=== PATIENT | female | born 1995 | race Caucasian/White ===

== ENCOUNTER 2018-03-16 20:15 | Emergency (ER) | payer MEDICAID ==
[~2018-03-16] VITALS: Ht 157.5 cm; Wt 104.3 kg
--- OUTSIDE RECORDS SUMMARY | 2018-03-16 20:20 | XMS REPORT ---
Author Author JANNY ODEN [facility] eClinicalWorks Address Unknown Phone Unavailable Care Team Providers Care Back Order Clerk Name Role Phone JANNY ODEN CP Unavailable Allergies, Adverse Reactions, Alerts Substance Reaction Event Type N.K.D.A. Info Not Available Non Drug Allergy Problems Problem Type Condition Code Onset Dates Condition Status Assessment Dental examination Z01.20 Active Medications Medication Code System Code Instructions Start Date End Date Status Dosage Ranitidine ND 0 not defined Zovia E (28) [facility] [address]-68 not defined Vyvanse [facility] [address]-19 not defined Acetaminophen [facility] [address]-75 not defined Pamprin Multi-Symptom [facility] [address] not defined Polyethylene Glycol 3350 [facility] [address]-51 not defined Guanfacine HCl [facility] [address]-26 not defined Oxcarbazepine [facility] [address]-66 not defined Melatonin [facility] [address] not defined Loratadine [facility] [address]-82 not defined Procedures Procedure Coding System Code Date AMALGAM-TWO SURFACES PRIMARY/PERM CPT-4 D2150 Aug 10, 2015 Vital Signs Date/Time: Oct 06, 2015 Blood Pressure Diastolic 74 mmHg Blood Pressure Systolic 129 mmHg Results No Known Results Summary Purpose eClinicalWorks Submission
--- OUTSIDE RECORDS SUMMARY | 2018-03-16 20:20 | XMS REPORT ---
Author Author ALFONSO CHAUDHARI [facility] Address Unknown Care Team Providers Care Physical Therapy Nurse Name Role Phone WATSON ALFONSO Unavailable PROBLEMS Type Condition ICD9-CM Code [id number] Code Onset Dates Condition Status SNOMED Code Problem Encounter for dental examination Z01.20 Active [id number] ALLERGIES No Known Allergies SOCIAL HISTORY Never Assessed PLAN OF CARE Activity Details Follow Up prn Reason:PROPHY VITAL SIGNS Blood pressure systolic 130 mmHg 2016-11-16 Blood pressure diastolic 97 mmHg 2016-11-16 MEDICATIONS Medication Instructions Dosage Frequency Start Date End Date Duration Status Debrox 6.5 % Active IUD's Active Loratadine Active Melatonin Active Polyethylene Glycol 3350 Active Zovia E () Active Guanfacine HCl Active Acetaminophen Active Ranitidine Active Pamprin Multi-Symptom Active Oxcarbazepine Active RESULTS No Results PROCEDURES Procedure Date Ordered Result Body Site LTD ORAL EVALUATION - PROBLEM FOCUS Nov 16, 2016 INTRAORL-PERIAPICAL 1 FILM 91849 Nov 16, 2016 PRFABR STAINLESS STEEL CROWN-PERM Nov 16, 2016 BITEWING - SINGLE FILM Nov 16, 2016 IMMUNIZATIONS No Known Immunizations MEDICAL (GENERAL) HISTORY Type Description Date Medical History moderate mr
--- OUTSIDE RECORDS SUMMARY | 2018-03-16 20:20 | XMS REPORT ---
Author MACK Rivera Organization eClinicalWorks Address Unknown Phone Unavailable Care Team Providers Care Vice President Payment Name Role Phone MACK CARROLL CP Unavailable Allergies, Adverse Reactions, Alerts Substance Reaction Event Type N.K.D.A. Info Not Available Non Drug Allergy Problems Problem Type Condition Code Onset Dates Condition Status Assessment Encounter for dental examination and cleaning without abnormal findings Z01.20 Active Medications No Known Medications Procedures Procedure Coding System Code Date Periodontal maint procedures CPT-4 D4910 Sep 29, 2015 PERIODIC ORAL EXAMINATION CPT-4 D0120 Sep 29, 2015 Vital Signs Date/Time: Sep 29, 2015 Blood Pressure Diastolic 96 wrist cuff mmHg Blood Pressure Systolic 126 mmHg Results No Known Results Summary Purpose eClinicalWorks Submission
--- OUTSIDE RECORDS SUMMARY | 2018-03-16 20:20 | XMS REPORT | Continuity of Care Document ---
Author Author [facility] Organization [facility] Address Unknown Phone Unavailable Allergies Active Description Code Type Severity Reaction Onset Reported/Identified Relationship to Patient Clinical Status Yes No Known Drug Allergies [id number] Drug Allergy Unknown N/A 08/03/2014 Medications There is no data. Problems Date Dx Coded Attending Type Code Diagnosis Diagnosed By 08/03/2014 JAE WATTERS DO Ot 379.43 08/03/2014 JAE WATTERS DO Ot 784.0 Procedures There is no data. Results There is no data. Encounters ACCT No. Visit Date/Time Discharge Status Pt. Type Provider Facility Loc./Unit Complaint [id number] 08/03/2014 18:16:00 08/03/2014 20:43:00 DIS Emergency JAE WATTERS DO [facility] [place] [id number] 01/24/2018 11:00:00 01/24/2018 23:59:59 CLS Outpatient ISABEL CLARK [facility] [place] [facility]
--- OUTSIDE RECORDS SUMMARY | 2018-03-16 20:20 | XMS REPORT ---
Author RICO Daly [facility] eClinicalWorks Address Unknown Phone Unavailable Care Team Providers Care Patient Support Representative Name Role Phone RICO CAMPBELL CP Unavailable Allergies No Known Allergies Problems Problem Type Condition Code Onset Dates Condition Status Assessment Encounter for PPD test Z11.1 Active Medications No Known Medications Procedures Procedure Coding System Code Date TB INTRADERMAL TEST CPT-4 93062 Oct 20, 2015 Results No Known Results Summary Purpose eClinicalWorks Submission
--- OUTSIDE RECORDS SUMMARY | 2018-03-16 20:20 | XMS REPORT ---
Author JANNY Eaton [facility] eClinicalWorks Address Unknown Phone Unavailable Care Team Providers Care Box Sealing Machine Operator Name Role Phone JANNY ODEN CP Unavailable Allergies, Adverse Reactions, Alerts Substance Reaction Event Type N.K.D.A. Info Not Available Non Drug Allergy Problems Problem Type Condition Code Onset Dates Condition Status Assessment Dental examination Z01.20 Active Medications Medication Code System Code Instructions Start Date End Date Status Dosage Guanfacine HCl [facility] [address]-09 not defined Vyvanse [facility] [address]-37 not defined Pamprin Multi-Symptom [facility] [address] not defined Melatonin [facility] [address] not defined Oxcarbazepine [facility] [address]-42 not defined Loratadine [facility] [address]-96 not defined Acetaminophen [facility] [address]-49 not defined Polyethylene Glycol 3350 [facility] [address]-43 not defined Zovia 1/35E (28) [facility] [address]-89 not defined Ranitidine ND 0 not defined Procedures Procedure Coding System Code Date AMALGAM-3 SURFACES PRIMARY/PERM CPT-4 D2160 Aug 10, 2015 Vital Signs Date/Time: Aug 10, 2015 Blood Pressure Diastolic 89 mmHg Blood Pressure Systolic 143 mmHg Results No Known Results Summary Purpose eClinicalWorks Submission
--- OUTSIDE RECORDS SUMMARY | 2018-03-16 20:20 | XMS REPORT ---
Author Author ALFONSO CHAUDHARI [facility] Address Unknown Care Team Providers Care Contracts Administrator Name Role Phone ALFONSO CHAUDHARI Unavailable PROBLEMS Type Condition ICD9-CM Code [id number] Code Onset Dates Condition Status SNOMED Code Problem Encounter for dental examination Z01.20 Active [id number] ALLERGIES Substance Reaction Event Type Date Status N.K.D.A. Unknown Non Drug Allergy Oct, Unknown SOCIAL HISTORY No smoking Hx information available PLAN OF CARE Activity Details Follow Up prn Reason:HYGIENE VITAL SIGNS MEDICATIONS Medication Instructions Dosage Frequency Start Date End Date Duration Status Zovia E (28) Active IUD's Active Debrox 6.5 % Active Melatonin Active Polyethylene Glycol 3350 Active Loratadine Active Guanfacine HCl Active Acetaminophen Active Ranitidine Active Pamprin Multi-Symptom Active Oxcarbazepine Active RESULTS No Results PROCEDURES Procedure Date Ordered Related Diagnosis Body Site Dental no charge Oct 13, 2016 IMMUNIZATIONS No Known Immunizations
--- OUTSIDE RECORDS SUMMARY | 2018-03-16 20:20 | XMS REPORT ---
Author Author ALFONSO CHAUDHARI eClinicalWorks Address Unknown Phone Unavailable Care Team Providers Care Healthcare Insurance Sales Agent Name Role Phone ALFONSO CHAUDHARI CP Unavailable Allergies, Adverse Reactions, Alerts Substance Reaction Event Type N.K.D.A. Info Not Available Non Drug Allergy Problems Problem Type Condition Code Onset Dates Condition Status Assessment Dental examination Z01.20 Active Problem Encounter for dental examination Z01.20 Active Medications Medication Code System Code Instructions Start Date End Date Status Dosage IUD's NDC 0 not defined Debrox [facility] [address]-85 6.5 % Otic not defined Zovia E (28) [facility] [address]-54 [place] [address]-59 not defined Polyethylene Glycol 3350 NDC 0 [place] [address] not defined Ranitidine NDC 0 not defined Loratadine [facility] [address]-86 [place] [address]-74 [place] [address] [place] [address]-37 not defined Procedures Procedure Coding System Code Date INTRAORL-PERIAPICAL 1 FILM 05532 CPT-4 D0220 Jun 16, 2016 LTD ORAL EVALUATION - PROBLEM FOCUS CPT-4 D0140 Jun 16, 2016 Vital Signs Date/Time: Jun 16, 2016 Blood Pressure Diastolic 82 mmHg Blood Pressure Systolic 113 mmHg Results No Known Results Summary Purpose eClinicalWorks Submission
--- OUTSIDE RECORDS SUMMARY | 2018-03-16 20:20 | XMS REPORT ---
Author Author JANNY ODEN [facility] eClinicalWorks Address Unknown Phone Unavailable Care Team Providers Care Him Tech Name Role Phone JANNY ODEN CP Unavailable Allergies, Adverse Reactions, Alerts Substance Reaction Event Type N.K.D.A. Info Not Available Non Drug Allergy Problems Problem Type Condition Code Onset Dates Condition Status Assessment Encounter for dental examination Z01.20 Active Problem Encounter for dental examination Z01.20 Active Medications Medication Code System Code Instructions Start Date End Date Status Dosage Debrox [facility] [address]-20 6.5 % Otic not defined IUD's NDC 0 not defined Polyethylene Glycol 3350 [facility] [address]-92 not defined Procedures Procedure Coding System Code Date Billing Notes on claim CPT-4 EC109 April 05, 2016 RESIN COMPOS - 3 SURFACES ANTERIOR CPT-4 D2332 April 05, 2016 Vital Signs Date/Time: April 05, 2016 Blood Pressure Diastolic 83 mmHg Blood Pressure Systolic 122 mmHg Results No Known Results Summary Purpose eClinicalWorks Submission
--- OUTSIDE RECORDS SUMMARY | 2018-03-16 20:20 | XMS REPORT ---
Author Author NHAN FARRIS [facility] Address [address] [place] [address] Care Team Providers Care Right Of Way Clearer Name Role Phone KALEIGH NHAN Unavailable PROBLEMS Type Condition ICD9-CM Code [id number] Code Onset Dates Condition Status SNOMED Code Problem Encounter for dental examination Z01.20 Active [id number] ALLERGIES No Known Allergies SOCIAL HISTORY Never Assessed PLAN OF CARE Activity Details Follow Up first Available Reason:restorative VITAL SIGNS Heart Rate 83 bpm 2016-10-13 Blood pressure systolic 119 mmHg 2016-10-13 Blood pressure diastolic 77 mmHg 2016-10-13 MEDICATIONS Medication Instructions Dosage Frequency Start Date End Date Duration Status Polyethylene Glycol 3350 Active Acetaminophen Active Debrox 6.5 % Active IUD's Active Oxcarbazepine Active Melatonin Active Guanfacine HCl Active Ranitidine Active Pamprin Multi-Symptom Active Loratadine Active Zovia () Active RESULTS No Results PROCEDURES Procedure Date Ordered Result Body Site PERIODIC ORAL EXAMINATION Oct 13, 2016 PROPHYLAXIS - ADULT Oct 13, 2016 TOPICAL FLUORIDE VARNISH Oct 13, 2016 IMMUNIZATIONS No Known Immunizations MEDICAL (GENERAL) HISTORY Type Description Date Medical History moderate mr
[2018-03-16] MEDS ORDERED: RX-HYDROCODONE/APAP 5/325 MG #4 TAB PK PO PRN (20:30)
[2018-03-16] MEDS ORDERED: IBUPROFEN 800 MG (MOTRIN) TAB PO ONE (20:30)
[2018-03-16] MEDS ORDERED: RX-MUPIROCIN (BACTROBAN) 2% OINT 22 GM TUBE ONE (20:30)
[2018-03-16] MEDS ORDERED: TETANUS,DIPTH,PERTUSS P/F (BOOSTRIX) 0.5 ML VIAL IM ONE (20:30)
[2018-03-16] MEDS ORDERED: HYDR-757 PO (20:33)
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
[2018-03-16 20:41] VITALS: BP 168/94
[2018-03-16] MEDS ORDERED: BACITRACIN OINTMENT 28 GM TUBE TOP SCH (21:00)
== END 2018-03-16 20:40 | disposition home or self-care (01) ==
LOC: EDUNIT# 20:15 → ER 20:17
DX: T21.02XA Burn of unspecified degree of abdominal wall, initial encounter (principal); T31.0 Burns involving less than 10% of body surface; F90.9 Attention-deficit hyperactivity disorder, unspecified type; Z23 Encounter for immunization; X12.XXXA Contact with other hot fluids, initial encounter
CPT/HCPCS: 90471; 90715; 99284

== ENCOUNTER 2018-06-10 22:04 | Emergency (ER) | payer MEDICAID ==
[~2018-06-10] VITALS: Ht 149.9 cm; Wt 99.8 kg
[~2018-06-10 22:04] MED LIST: HYDR-4226 PO
[2018-06-10] MEDS ORDERED: SULF1TAB35 PO (22:27)
--- NOTE | 2018-06-10 22:27 | ED Integumentary General ---
General Chief Complaint: Skin/Wound Problems Stated Complaint: WOUND ON STOMACH Source: patient, caregiver Exam Limitations: no limitations, physical impairment History of Present Illness Date Seen by Provider: Jun 10, 2018 Time Seen by Provider: 22:25 Initial Comments Patient is a 23-year-old female who presents to the emergency room with her corporate investigator for complaints of an abscess to her right lower quadrant area on her abdomen. 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 The wound is open and draining at this time. Timing/Duration: yesterday Associated Symptoms: change in skin texture, other Allergies and Home Medications Allergies Coded Allergies: No Known Drug Allergies (Unverified , 08/03/14) Home Medications Hydrocodone/Acetaminophen 1 Each Tablet, 1 EACH PO Q6H PRN for PAIN-MODERATE Prescribed by: KIRT YOUNG on 03/16/182032 Sulfamethoxazole/Trimethoprim 1 Each Tablet, 1 EACH PO BID Prescribed by: MELLISSA LOTT on 06/10/182226 Patient Home Medication List Home Medication List Reviewed: Yes Review of Systems Review of Systems Constitutional: see HPI; No chills, No fever Skin: see HPI, lesions (abdominal wall abscess right lower quadrant area) All Other Systems Reviewed Negative Unless Noted: Yes Past Ltyondf-Fmdcgr-Wcktao Hx Past Med/Social Hx: Reviewed Nursing Past Med/Soc Hx Patient Social History Alcohol Use: Denies Use Recreational Drug Use: No Smoking Status: Never a Smoker 2nd Hand Smoke Exposure: No Recent Foreign Travel: No Contact w/Someone Who Travel: No Recent Hopitalizations: No Immunizations Up To Date Tetanus Booster (TDap): Less than 5yrs PED Vaccines UTD: Yes Seasonal Allergies Seasonal Allergies: No Past Medical History Surgeries: Yes (ADDITIONAL DIGIT REMOVAL) Respiratory: No Cardiac: No Neurological: No Reproductive Disorders: No Sexually Transmitted Disease: No Genitourinary: No Gastrointestinal: No Musculoskeletal: No Endocrine: No HEENT: No Cancer: No 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/ADHD Integumentary: No Recent Skin Changes Blood Disorders: No Adverse Reaction/Blood Tranf: No Family Medical History Reviewed Nursing Family Hx Physical Exam Vital Signs Capillary Refill : General Appearance: WD/WN, no apparent distress Cardiovascular: normal peripheral pulses, regular rate, rhythm, no edema, no gallop, no JVD, no murmur Respiratory: chest non-tender, lungs clear, normal breath sounds, no respiratory distress, no accessory muscle use Gastrointestinal: normal bowel sounds, non tender, soft, no organomegaly, no pulsatile mass Skin: normal color, warm/dry Skin Problem Location: torso (right lower quadrant abdominal wall.) Skin Problem Character: abscess (there is an area of erythema that is 4 cm diameter with an area of 1 cm diameter central punctum that is open and draining a purulent drainage. Pressure was applied and a moderate amount of purulent drainage was expressed. Culture was sent to lab.) Progress/Results/Core Measures Results/Orders My Orders Orders - MELLISSA LOTT Sulfamethoxazole/Trimet Ds Tab (Bactrim (06/10/18 22:30) Progress Progress Note : Time: 22:25 Progress Note Patient seen and evaluated the patient. A culture was sent to lab of the drainage. The patient and caregiver agreed for planes of discharge, antibiotic use, Tylenol and ibuprofen for pain. She was placed on Bactrim for suspected MRSA. Departure Impression Primary Impression: Abscess Additional Impression: Cellulitis Disposition: 01 HOME, SELF-CARE Condition: Stable/Unchanged Departure-Patient Inst. Decision time for Depature: 22:25 Referrals: VANE ARMSTRONG MD (PCP/Family) Primary Care Physician Patient Instructions: Skin Abscess Add. Discharge Instructions: Take medications as directed. You may use ibuprofen and Tylenol as directed by the bottle for pain. Follow up with Dr. Carmichael within 1 week for recheck. Return back to the emergency room for any worsening symptoms or concerns as needed. All discharge instructions reviewed with patient and/or family. Voiced understanding. Scripts Sulfamethoxazole/Trimethoprim (Bactrim Ds Tablet) 1 Each Tablet 1 EACH PO BID for 10 Days, #20 TAB Prov: MELLISSA LOTT 06/10/18 MELLISSA LOTT Jun 10, 2018 22:27
[2018-06-10] MEDS ORDERED: TRIM/SULFAMETH 160/800 (SEPTRA DS) TAB PO ONE (22:30)
[2018-06-10 22:35] VITALS: BP 136/89
== END 2018-06-10 22:35 | disposition home or self-care (01) ==
LOC: EDUNIT# 22:04 → ER 22:05
DX: L02.211 Cutaneous abscess of abdominal wall (principal); L03.311 Cellulitis of abdominal wall; F90.9 Attention-deficit hyperactivity disorder, unspecified type
CPT/HCPCS: 99283

== ENCOUNTER → 2020-10-11 | Outpatient (CLI) | payer MEDICAID ==
[~2020-10-11] MED LIST changes: +SULF1TAB35 PO
--- NOTE | 2020-10-11 16:46 | Diagnostic Imaging Report ---
PROCEDURE: US Non-ob pelvis comp/trans. TECHNIQUE: Multiple Real-time grayscale images were obtained of the pelvis in various projections endovaginally. Transabdominal imaging was also performed. INDICATION: Pelvic pain. COMPARISON: There are no prior studies available for comparison. FINDINGS: The uterus is nongravid and not enlarged measuring 5.2 x 2.5 x 4.3 cm. There is an IUD within the endometrium and the IUD seems to be in good position. The endometrial lining is not thickened measuring 5 mm. There is no focal mass involving the uterus to suggest a fibroid. Both ovaries are identified. The ovaries are generally unremarkable. There is no solid pelvic mass or free fluid collection evident. IMPRESSION: 1. There is no evidence for an acute pelvic abnormality. 2. There is an IUD within the uterus and the IUD seems to be in good position. Dictated by: Dictated on workstation # [id number]
== END ==
LOC: RAD 14:41
PROVIDERS: ATTEND Family Medicine
DX: Z30.431 Encounter for routine checking of intrauterine contraceptive device (principal); R10.2 Pelvic and perineal pain
CPT/HCPCS: 76830; 76856

== ENCOUNTER 2021-03-11 05:52 | Emergency (ER) | payer MEDICAID | END 2021-03-11 06:33 | disposition left against medical advice (07) | LOC: EDUNIT# 05:52 → ER 05:57 | DX: K59.00 Constipation, unspecified (principal) ==

== ENCOUNTER 2023-05-05 15:53 | Inpatient (IN) | payer MEDICAID ==
[~2023-05-05] VITALS: Ht 149 cm; Wt 127.0 kg
[~2023-05-05 15:53] MED LIST changes: -SULF1TAB35 PO; +SULF1TAB38 PO
[2023-05-05] MEDS ORDERED: fentaNYL INJECTION 100 MCG/2 ML VIAL IVP ONE (16:30)
[2023-05-05] MEDS ORDERED: LACTATED RINGERS 1,000 ML IV ONE ×2 (16:30→17:00)
[2023-05-05] MEDS ORDERED: ACETAMINOPHEN 500 MG TABLET PO ONE (16:30)
[2023-05-05] MEDS ORDERED: ONDANSETRON 4 MG/2 ML (SDV) Z0FRAN IVP ONE (16:30)
[2023-05-05] MEDS ORDERED: PIPERACILLIN SODIUM/TAZOBACTAM 4.5 GM in NS (IVPB) 100 ML 100 ML IV ONE (16:30)
[2023-05-05 16:33] LABS: BASOPHILS % (AUTO) 0 % (0-10); EOSINOPHILS % (AUTO) 0 % (0-10); HEMATOCRIT 43 % (35-52); HEMOGLOBIN 14.1 g/dL (11.5-16.0); LYMPHOCYTES # (AUTO) 1.1 10^3/uL (1.0-4.0); LYMPHOCYTES % (AUTO) 12 % (12-44); MEAN CORPUSCULAR HEMOGLOBIN 28 pg (25-34); MEAN CORPUSCULAR HGB CONC 33 g/dL (32-36); MEAN CORPUSCULAR VOLUME 85 fL (80-99); MEAN PLATELET VOLUME 10.4 fL (9.0-12.2); MONOCYTES # (AUTO) 0.5 10^3/uL (0.0-1.0); MONOCYTES % (AUTO) 5 % (0-12); NEUTROPHILS # (AUTO) 7.8 10^3/uL (1.8-7.8); NEUTROPHILS % (AUTO) 83 % (42-75); PLATELET COUNT 232 10^3/uL (130-400); WHITE BLOOD COUNT 9.5 10^3/uL (4.3-11.0)
--- NOTE | 2023-05-05 16:39 | Diagnostic Imaging Report ---
INDICATION: Sepsis. TIME OF EXAM: 4:22 PM. COMPARISON: No prior studies are available for comparison. FINDINGS: The heart size is normal. The pulmonary vascularity is unremarkable. The lungs are clear. No infiltrate, effusion or pneumothorax is detected. IMPRESSION: No acute cardiopulmonary process is detected. Dictated by: Dictated on workstation # [id number]
[2023-05-05 16:41] LABS: INR 1.2 (0.8-1.4); PROTHROMBIN TIME PATIENT 15.5 SEC (12.2-14.7)
[2023-05-05 16:44] LABS: FIBRIN DEGRADATION PRODUCTS 1.92 UG/ML (0.00-0.49)
[2023-05-05 16:45] LABS: CALCIUM 10.5 MG/DL (8.5-10.1)
[2023-05-05 16:46] LABS: TOTAL PROTEIN 8.1 GM/DL (6.4-8.2)
[2023-05-05 16:48] LABS: BILIRUBIN,TOTAL 0.4 MG/DL (0.1-1.0)
[2023-05-05] MEDS: VANCOMYCIN INJECTION 1,000 MG in NS (IVPB) 250 ML 250 ML IV SCH ×2 (16:48→17:49)
[2023-05-05 16:50] LABS: CREATININE SERUM 1.09 MG/DL (0.60-1.30)
--- NOTE | 2023-05-05 16:50 | ED General ---
General Chief Complaint: Lower Extremity Stated Complaint: LEFT LEG SWELLING Nursing Triage Note: PT TO RM 3 PER W/C, PT CO OF L LOWER EXT SWELLING, REDNESS FOR 2 DAYS. PT STATES HAS HAD FEVERS FOR A COUPLE DAYS. PT CO OF PAIN RATES PAIN 10. PT WAS SEEN AT [facility] AND STATES WAS GIVEN A PAIN SHOT, TORDOL. PT STATES ALSO HAS SOME VOMITING. PT WAS GIVEN 1GM IM ROCEPHIN AT [facility]. NO WOUNDS OR BREAKDOWNS NOTED ON L LOWER EXT. PT DOES HAVE CRACKS NOTED ON HEELS Source of Information: Patient, Family Exam Limitations: No Limitations History of Present Illness Date Seen by Provider: May 05, 2023 Time Seen by Provider: 16:06 Initial Comments This 28-year-old young lady presents to the emergency room as referred by [facility] for patient with cellulitis of the left lower leg and foot. Patient notes she began to feel ill on Sunday, May 01 with redness in her leg and foot. By she was ill with headache, fever and vomiting. She reports sleeping ou tside on the porch that night because she did not want to disturb anyone in the house. She presented to the [facility] clinic today, and she received a Rocephin injection she was referred to the ER. She is quite tachycardic with HR in the 140s and 150s and febrile with temperature of 38.3 C. Patient appears to have cognitive limitations during the interview. Allergies and Home Medications Allergies Coded Allergies: No Known Drug Allergies (Unverified , 08/03/14) Patient Home Medication List Home Medication List Reviewed: Yes Hydrocodone/Acetaminophen (Hydrocodone/Acetaminophen 5 MG/325 MG TAB) 1 Each Tablet, 1 EACH PO Q6H PRN for PAIN-MODERATE Prescribed by: KIRT YOUNG on 03/16/182032 Sulfamethoxazole/Trimethoprim (Bactrim Ds Tablet) 1 Each Tablet, 1 EACH PO BID Prescribed by: MLELISSA LOTT on 06/10/182226 Review of Systems Review of Systems Constitutional: see HPI EENTM: no symptoms reported Respiratory: no symptoms reported Cardiovascular: see HPI Gastrointestinal: see HPI Genitourinary: no symptoms reported : No Musculoskeletal: no symptoms reported Skin: see HPI Psychiatric/Neurological: See HPI Hematologic/Lymphatic: No Symptoms Reported Immunological/Allergic: no symptoms reported Past Fqljekd-Fxzzsk-Qldcnp Hx Patient Social History Tobacco Use?: No Substance use?: No Alcohol Use?: No Pt feels they are or have been: No Immunizations Up To Date Tetanus Booster (TDap): Less than 5yrs PED Vaccines UTD: Yes Seasonal Allergies Seasonal Allergies: No Past Medical History Surgery/Hospitalization HX: BIPOLAR, MOOD DISORDER, ADHD Surgeries: Yes (ADDITIONAL DIGIT REMOVAL) Respiratory: No Cardiac: No Neurological: No : No Reproductive Disorders: No Sexually Transmitted Disease: No Genitourinary: No Gastrointestinal: No Musculoskeletal: No Endocrine: No HEENT: No Cancer: No Psychosocial: Yes (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 oz. 99.461653dz; 55.00 BMI Method:Stated General Appearance: WD/WN, Mild Distress, Obese HEENT: PERRL/EOMI, Normal ENT Inspection Neck: Normal Inspection Respiratory: Lungs Clear, Normal Breath Sounds, No Accessory Muscle Use, No Respiratory Distress Cardiovascular: No Edema, No Murmur, Tachycardia Gastrointestinal: Normal Bowel Sounds, Non Tender, Soft Extremity: Other (Marked blanching erythema, tenderness, warmth, and edema of the mid lower leg down through the entire foot.) Neurologic/Psychiatric: Alert, Oriented x3, No Motor/Sensory Deficits, Normal Mood/Affect Skin: warm/dry, other (As above) Focused Exam Lactate Level 05/05/23 16:15: Lactic Acid Level 2.20*H Lactic Acid Level Laboratory Tests Test 05/05/23 16:15 Lactic Acid Level 2.20 MMOL/L (0.50-2.00) *H Progress/Results/Core Measures Suspected Sepsis SIRS Temperature: Pulse: 142 Respiratory Rate: 20 Laboratory Tests 05/05/23 16:15: White Blood Count 9.5 Blood Pressure 134 /95 Mean: 108 05/05/23 16:15: Lactic Acid Level 2.20*H Laboratory Tests 05/05/23 16:15: Creatinine 1.09, INR Comment 1.2, Platelet Count 232, Total Bilirubin 0.4 Results/Orders Lab Results Laboratory Tests Test 05/05/23 16:15 05/05/23 16:55 Range/Units White Blood Count 9.5 4.3-11.0 10^3/uL Red Blood Count 5.04 3.80-5.11 10^6/uL Hemoglobin 14.1 11.5-16.0 g/dL Hematocrit 43 35-52 % Mean Corpuscular Volume 85 80-99 fL Mean Corpuscular Hemoglobin 28 25-34 pg Mean Corpuscular Hemoglobin Concent 33 32-36 g/dL Red Cell Distribution Width 14.1 10.0-14.5 % Platelet Count 232 130-400 10^3/uL Mean Platelet Volume 10.4 9.0-12.2 fL Immature Granulocyte % (Auto) 0 % Neutrophils (%) (Auto) 83 H 42-75 % Lymphocytes (%) (Auto) 12 12-44 % Monocytes (%) (Auto) 5 0-12 % Eosinophils (%) (Auto) 0 0-10 % Basophils (%) (Auto) 0 0-10 % Neutrophils # (Auto) 7.8 1.8-7.8 10^3/uL Lymphocytes # (Auto) 1.1 1.0-4.0 10^3/uL Monocytes # (Auto) 0.5 0.0-1.0 10^3/uL Eosinophils # (Auto) 0.0 0.0-0.3 10^3/uL Basophils # (Auto) 0.0 0.0-0.1 10^3/uL Immature Granulocyte # (Auto) 0.0 0.0-0.1 10^3/uL Prothrombin Time 15.5 H 12.2-14.7 SEC INR Comment 1.2 0.8-1.4 Activated Partial Thromboplast Time 35 24-35 SEC D-Dimer 1.92 H 0.00-0.49 UG/ML Sodium Level 136 135-145 MMOL/L Potassium Level 4.0 3.6-5.0 MMOL/L Chloride Level 103 98-107 MMOL/L Carbon Dioxide Level 18 L 21-32 MMOL/L Anion Gap 15 H 5-14 MMOL/L Blood Urea Nitrogen 16 7-18 MG/DL Creatinine 1.09 0.60-1.30 MG/DL Estimat Glomerular Filtration Rate 71 BUN/Creatinine Ratio 15 Glucose Level 91 70-105 MG/DL Lactic Acid Level 2.20 *H 0.50-2.00 MMOL/L Calcium Level 10.5 H 8.5-10.1 MG/DL Corrected Calcium 10.5 H 8.5-10.1 MG/DL Total Bilirubin 0.4 0.1-1.0 MG/DL Aspartate Amino Transf (AST/SGOT) 16 5-34 U/L Alanine Aminotransferase (ALT/SGPT) 20 0-55 U/L Alkaline Phosphatase 83 40-136 U/L Total Protein 8.1 6.4-8.2 GM/DL Albumin 4.0 3.2-4.5 GM/DL Serum Test, Qualitative NEGATIVE NEGATIVE My Orders Orders - ALISSON GUILLERMO MD Cbc With Automated Diff (05/05/23 16:22) Comprehensive Metabolic Panel (05/05/23 16:22) Blood Culture (05/05/23 16:22) Sputum Culture (05/05/23 16:22) Urinalysis (05/05/23 16:22) Urine Culture (05/05/23 16:22) Protime With Inr (05/05/23 16:22) Partial Thromboplastin Time (05/05/23 16:22) Chest 1 View, Ap/Pa Only (05/05/23 16:22) Ed Iv/Invasive Line Start (05/05/23 16:22) Vital Signs Adult Sepsis Patie Q15M (05/05/23 16:22) O2 (05/05/23 16:22) Remove Rings In Anticipation O (05/05/23 16:22) Lactic Acid Analyzer (05/05/23 16:22) Fibrin Degradation Products (05/05/23 16:22) Piperacillin Sodium/Tazobactam (Zosyn Vi (05/05/23 16:30) Vancomycin Injection (Vancomycin Injecti (05/05/23 16:30) Acetaminophen Tablet (Acetaminophen Ta (05/05/23 16:30) Ondansetron Injection (Zofran Injectio (05/05/23 16:30) Fentanyl Inj (Sublimaze Injection) (05/05/23 16:30) Lactated Ringers (Lr 1000 Ml Iv Solution (05/05/23 16:30) Hcg,Qualitative Serum (05/05/23 16:55) Lactated Ringers (Lr 1000 Ml Iv Solution (05/05/23 17:00) Medications Given in ED Current Medications Medications Dose Ordered Sig/Wes Route Start Time Stop Time Status Last Admin Dose Admin Acetaminophen 1,000 mg ONCE ONCE PO 05/05/23 16:30 05/05/23 16:31 DC 05/05/23 16:48 1,000 MG Fentanyl Citrate 50 mcg ONCE ONCE IVP 05/05/23 16:30 05/05/23 16:31 DC 05/05/23 16:47 50 MCG Lactated Ringer's 1,000 ml @ 0 mls/hr Q0M ONCE IV 05/05/23 16:30 05/05/23 16:31 DC 05/05/23 16:48 1,000 MLS/HR Ondansetron HCl 8 mg ONCE ONCE IVP 05/05/23 16:30 05/05/23 16:31 DC 05/05/23 16:47 8 MG Piperacillin Sod/ Tazobactam Sod 4.5 gm/Sodium Chloride 100 ml @ 200 mls/hr ONCE ONCE IV 05/05/23 16:30 05/05/23 16:59 DC 05/05/23 16:48 200 MLS/HR Vital Signs/I&O 05/05/23 16:00 Temp 38.3 Pulse 142 Resp 20 B/P (MAP) 134/95 (108) Pulse Ox 97 Capillary Refill : Less Than 3 Seconds Blood Pressure Mean: 108 Progress Note #1: Time: 16:52 Progress Note Patient was interviewed and examined shortly after arrival. Septic work-up is being pursued. Pain is being treated with fentanyl. Nausea is being treated with Zofran. IV fluids are infusing. Rocephin was administered by IM route in the clinic. IV therapy is being initiated with Zosyn and vancomycin. Chest x- ray was viewed by me and interpreted as unremarkable. Progress Note #2: Time: 17:52 Progress Note Due to patient's extreme sinus tachycardia, 2 L of IV fluid resuscitation are being provided. Antibiotics with Zosyn and vancomycin are being administered. Patient appears to have sepsis with source of infection as the left lower extremity cellulitis. She is being admitted to the [facility] service. I have discussed the case with Dr. Sotelo, family protection specialist. ECG Initial ECG Impression Date: May 05, 2023 Initial ECG Impression Time: 16:12 Initial ECG Rate: 138 Initial ECG Rhythm: S.Tach Comment Sinus tachycardia with no ST elevation. ST depression noted which may be a consequence of rate. Automated calculation of voltage meets criteria for LVH. No other abnormal intervals or axis deviation. Diagnostic Imaging Diagonstic Imaging: Xray Plain Films/CT/US/NM/MRI: chest Comments NAME: SUSHANT EDGAR [facility] REC#: [id number] PT STATUS: REG ER : 1995 PHYSICIAN: ALISSON GUILLERMO MD ADMIT DATE: 05/05/23/ER Signed Date of Exam:05/05/23 CHEST 1 VIEW, AP/PA ONLY INDICATION: Sepsis. TIME OF EXAM: 4:22 PM. COMPARISON: No prior studies are available for comparison. FINDINGS: The heart size is normal. The pulmonary vascularity is unremarkable. The lungs are clear. No infiltrate, effusion or pneumothorax is detected. IMPRESSION: No acute cardiopulmonary process is detected. Dictated by: Dictated on workstation # [id number] Dict: 05/05/23 1636 Trans: 05/05/23 1644 [facility] [phone] Interpreted by: MARYJO HIGGINBOTHAM MD Electronically signed by: MARYJO HIGGINBOTHAM MD 05/05/23 1644 Departure Communication (Admissions) Time/Spoke to Admitting Phy: 17:50 Dr. Sotelo Impression Primary Impression: Sepsis Qualified Codes: A41.9 - Sepsis, unspecified organism Additional Impression: Left leg cellulitis Disposition: ADMITTED INPATIENT Condition: Improved Admissions Decision to Admit Reason: Admit from ER (General) Decision to Admit/Date: May 05, 2023 Time/Decision to Admit Time: 17:50 Departure-Patient Inst. Referrals: [facility] [place] (PCP/Family) Primary Care Physician ALISSON GUILLERMO MD May 05, 2023 16:50
[2023-05-05] MEDS ORDERED: ENOXAPARIN 60 MG/0.6 ML SYRINGE SC ONE (18:15)
--- NOTE | 2023-05-05 18:47 | History & Physical-Hospitalist ---
BOB BHAT MD 05/05/23 1847: History of Present Illness HPI/Chief Complaint CC: Left lower extremity swelling Patient presents to the ED for left lower extremity swelling which she states started 2 days ago. She notes that it began becoming red and did have some vomiting 2 days ago. She notes that it has been very painful. She took Benadryl and prednisone last night with some relief. However she then came to clinic today to be evaluated where she was given a dose of IM Rocephin and advised to come to the ED for further evaluation. Patient states that she has never had cellulitis or erythema like this before. No history of DVT or PE in both patient and family. She is having a headache that has been resolving with Tylenol. She notes that the redness is gone down and she came in with a fever which has now resolved. Her pain is also improving after she was given Tylenol in the ED but is still rated 7 out of 10. Of note, patient seems to have some intellectual issues however did state understanding to the plan and is her own guardian. Source: patient Exam Limitations: no limitations Date Seen 05/05/23 Time Seen by a Provider: 18:42 Attending Physician [place] PCP Admitting Physician: Dr. Janette Clemons Attending Physician: Dr. Janette Clemons Referring Physician Date of Admission 05/05/2023 Home Medications & Allergies Home Medications Reviewed patient Home Medication Reconciliation performed by pharmacy medication reconciliations headend technician and/or nursing. Patients Allergies have been reviewed. Allergies Allergies Coded Allergies No Known Drug Allergies ([id number]/3/14) Past Qrpyfnr-Deboqj-Vqtuby Hx Patient Social History Tobacco Use?: No Substance use?: No Alcohol Use?: No Pt feels they are or have been: No Immunizations Up To Date Tetanus Booster (TDap): Unknown PED Vaccines UTD: Yes Seasonal Allergies Seasonal Allergies: No Current Status Advance Directives: No Communicates: Verbally Primary Language: Nepalese Preferred Spoken Language: Nepalese Is interpretation needed?: No Implanted or Applied Medical D: None Past Medical History Sexually Transmitted Disease: No ADD/ADHD, Bipolar Recent Skin Changes Blood Disorders: No Adverse Reaction/Blood Tranf: No Family Medical History No Pertinent Family Hx Review of Systems Constitutional: chills, fever EENTM: No blurred vision Respiratory: No cough, No short of breath Cardiovascular: No chest pain; edema (Left lower extremity swelling); No palpitations Gastrointestinal: No abdominal pain, No constipation, No diarrhea, No nausea; vomiting Genitourinary: No dysuria : No Control/STD Prophylaxis: Depo Provera Musculoskeletal: other (Left lower extremity pain) Skin: other (Erythema noted on left lower extremity outlined by nurse) Psychiatric/Neurological: Headache Physical Exam Physical Exam Vital Signs Vital Signs - First Documented 05/05/23 05/05/23 16:00 19:14 Temp 38.3 Pulse 142 Resp 20 B/P (MAP) 134/95 (108) Pulse Ox 97 O2 Delivery Room Air Capillary Refill : Less Than 3 Seconds Height, Weight, BMI Height: 4'11.00" Weight: 220lbs. oz. 99.193738vb; 55.00 BMI Method:Stated General Appearance: No Apparent Distress HEENT: PERRL/EOMI Neck: Full Range of Motion Respiratory: Chest Non Tender, Lungs Clear, Normal Breath Sounds, No Accessory Muscle Use, No Respiratory Distress Cardiovascular: Regular Rate, Rhythm, No Murmur, Normal Peripheral Pulses Gastrointestinal: Normal Bowel Sounds, Non Tender, Soft Back: Normal Inspection Extremity: Other (Swelling noted on left lower extremity with erythema extending from mid razo down into toes. Tender to palpation. Warm to touch. Per ED doc, redness does seem to be improving somewhat. Left lower extremity does appear larger in size than right lower extremity) Neurologic/Psychiatric: Alert, Oriented x3 Skin: Warm/Dry Results Results/Procedures Labs Laboratory Tests 05/05/23 16:15 Patient resulted labs reviewed. Imaging: Reviewed Imaging Films, Reviewed Imaging Report Imaging Chest x-ray negative Assessment/Plan Admission Diagnosis Sepsis secondary to left lower extremity cellulitis Admission Status: Inpatient Order (span 2 midnights) Reason for Inpatient Admission: 28-year-old female presenting with sepsis secondary to left lower extremity cellulitis. Will require treatment with IV antibiotics prior to transition to oral and stabilization of tachycardia and vital signs. Assessment and Plan 28-year-old female presenting with sepsis secondary to left lower extremity cellulitis. Will require treatment with IV antibiotics prior to transition to oral and stabilization of tachycardia and vital signs. Diagnosis/Problems Diagnosis/Problems (1) Sepsis Status: Resolved Assessment & Plan: Meets criteria for sepsis due to tachycardia and fever as well as a source of infection with the patient's left lower extremity cellulitis Elevated lactate No other sources of infection noted with chest x-ray Status post 2 L of LR, one-time IM Rocephin in the outpatient and started on IV Vanco and Zosyn Continue Vanco and Zosyn We will follow-up blood cultures Tylenol as needed for fevers Qualifiers: Sepsis type: sepsis due to unspecified organism Sepsis acute organ dysfunction status: unspecified Qualified Codes: A41.9 - Sepsis, unspecified organism Resolution Date/Time: 05/06/23 @ 08:04 (2) Left leg cellulitis Status: Acute Assessment & Plan: Management per problem above Outline has been drawn around area of cellulitis, will continue to monitor for improvement (3) Elevated d-dimer Assessment & Plan: Noted to have elevated D-dimer as well as unilateral leg swelling Most likely to be due to cellulitis, Wells score of -1 However given elevated D-dimer, will obtain a left lower extremity Doppler ultrasound tomorrow Status post therapeutic dose of Lovenox (4) Nausea Status: Resolved Assessment & Plan: Status post dose of Zofran No episodes of vomiting noted by patient today We will keep Zofran on board and allow general diet Resolution Date/Time: 05/06/23 @ 10:51 (5) ADHD Status: Chronic Assessment & Plan: Patient on Intuniv at home, not on formulary here Will restart once pharmacy has completed med rec (6) Acid reflux Status: Chronic Assessment & Plan: Continue Tums and antacids (7) Mood disorder Status: Chronic Assessment & Plan: Continue home oxycarbazapine 450mg BID JANETTE CLEMONS DO 05/06/23 1609: Assessment/Plan Admission Diagnosis I performed a history and physical examination of the patient and discussed the management with the resident. I reviewed the residents note and agree with the documented findings and plan of care. Admission Status: Inpatient Order (span 2 midnights) Reason for Inpatient Admission: severe cellulitis BOB BHAT MD May 05, 2023 18:47 JANETTE CLEMONS DO May 06, 2023 16:09
--- OUTSIDE RECORDS SUMMARY | 2023-05-05 19:05 | XMS REPORT ---
Author Author [facility] Address Unknown Phone Unavailable Care Team Providers Care Temporary Administrative Assistant Name Role Phone geoffreyJONATHON RODRIGUEZ Unavailable PROBLEMS Type Condition ICD9-CM Code [id number] Code Onset Dates Condition S tatus W/U Status Risk SNOMED Code Notes Problem Neurodermatitis L28.0 confirmed 7011 69494 Problem MRSA (methicillin resistant Staphylococcus aureus) A49.02 confirmed 964249601 Problem Seasonal allergies J30.2 confirmed [id number] Problem Morbid obesity E66.01 confirmed 38921 6002 Problem Gastroesophageal reflux disease without esophagitis K21.9 confirmed [id number] Problem Mental health problem F48.9 confirmed [id number] ALLERGIES No Known Allergies ENCOUNTERS from 1994 to 2023-04-27 Encounter Location Date Provider Diagnosis [facility] [address] [facility] [id number] [place], [place] [address] 10 May, 2021 JONATHON Gay Bilateral lower extremity edema R60.0 IMMUNIZATIONS Vaccine Route Administration Date Status PRIVATE VARICELLA Unknown January 13, 2010 Administered GARDASIL (HPV-3 DOSE) Unknown Jun 25, 2012 Administer ed PRIVATE DTAP (DAPTACEL) Unknown 1994 Administ ered PRIVATE POLIO (IPV) Unknown 1994 Administered PRIVATE POLIO (IPV) Unknown 1994 Administered PRIVATE POLIO (IPV) Unknown 1994 Administered PRIVATE DTAP (INFANRIX) Unknown 1994 Administ ered PRIVATE HEP B (PEDS/ADOLESCENT, 3-DOSE) Unknown March 29, 1995 Administered Hib 4 dose schedule Unknown 1994 Administered PRIVATE MMR Unknown March 29, 1995 Administered PRIVATE MMR Unknown May 17, 1998 Administered PRIVATE POLIO (IPV) Unknown May 17, 1998 Administered PRIVATE HIB (ACTHIB) Unknown 1994 Administere d PRIVATE HIB (ACTHIB) Unknown 1994 Administere d PRIVATE DTAP (DAPTACEL) Unknown 1994 Administ jarrell tdap (history) Unknown March 16, 2018 Administered PRIVATE TDAP (BOOSTRIX) Unknown January 13, 2010 Administ erejayro PRIVATE HIB (ACTHIB) Unknown March 29, 1995 Administere d PRIVATE HIB (ACTHIB) Unknown 1994 Administere d PRIVATE HEP B (PEDS/ADOLESCENT, 3-DOSE) Unknown 1994 Administered PRIVATE HEP B (PEDS/ADOLESCENT, 3-DOSE) Unknown 1994 Administered DTP Unknown 1994 Administered influenza IIV3 (history) Unknown Aug 07, 2014 Adminis tered PRIVATE DTAP (DAPTACEL) Unknown May 17, 1998 Administ jarrell PRIVATE DTAP (DAPTACEL) Unknown March 29, 1995 Administ jarrell SOCIAL HISTORY Sex Assigned At : Social History Observation Description Sex Assigned At Unknown Alcohol Screen (Audit-C) Question Answer Notes Did you have a drink containing alcohol in the past year? No Points 0 Interpretation Negative PHQ2 Question Answer Notes In the last 2 weeks, how often have you had little interest or pleasure in doing things? Not at all In the last 2 weeks, how often have you been feeling down, depressed, or hopeless? Not at all Total PHQ2 Score 0 REASON FOR REFERRAL No Information VITAL SIGNS Height 5'0" in May, Height-cm 152.4 cm May, Weight 255.9 lbs May, Weight-kg 116.07 kg May, Temperature 98.3 degrees Fahrenheit May, Heart Rate 97 bpm May, Respiratory Rate 20 bpm May, Oximetry 99 % May, BMI 49.97 kg/m2 May, Blood pressure systolic 132 mmHg May, Blood pressure diastolic 86 mmHg May, MEDICATIONS Medication SIG (Take, Route, Frequency, Duration) Notes Start Da te End Date Status Cipro HC 0.2-1 % 3 drops into affected ear Otic Twice a day for 7 days Mar, Active Melatonin 5 MG 1 capsule Orally at bedtime Active hydrOXYzine HCl 25 MG 1 tablet for itching Orally 2 times a day as needed for 30 days Jun, Active Depo-Provera 150 MG/ML 1 ml Intramuscular 90 days for 90 days Aug, Active OXcarbazepine 150 MG 3 capsules Orally Twice a day Kirti Burt Active guanFACINE HCl 2 MG 1 tablet at bedtime Orally Once a day un sure of dose // Kirti Burt Active PROCEDURES No Information RESULTS No Results REASON FOR VISIT leg pain- Pt c/o feet swelling and pain for the last 2-3 weeks, worse when she l ays down, tender to the touch -[facility] MEDICAL (GENERAL) HISTORY Type Description Date Medical History moderate mr Goals Section No Information Health Concerns No Information MEDICAL EQUIPMENT No Information MENTAL STATUS No Information FUNCTIONAL STATUS No Information ASSESSMENTS Encounter Date Diagnosis Assessment Notes Treatment Notes Treatm ent Clinical Notes May, Bilateral lower extremity edema (ICD-10 - R60.0) Discussed getting lab work as baseline if she is going to be switching to our clinic from [facility]. JAIRO signed. No signs of DVT on exam. Recommend low salt diet and cutting back to one soda daily. She can get the OTC compression socks to wear to help as well., Leg and Ankle Edema: Care Instructions material was published May, Other Low Sodium Diet (2,000 Milligram): Care Instructions material was published, Learning About Low-Sodium Foods material was published PLAN OF TREATMENT Medication Medication Name Sig Start Date Stop Date Cipro HC 0.2-1 % 3 drops into affected ear Otic Twice a d ay for 7 days Mar, Treatment Notes Assessment Notes Clinical Notes Bilateral lower extremity edema Discussed getting lab work as baseline if she is going to be switching to our clinic from [facility]. JAIRO signed. No signs of DVT on exam. Recommend low salt diet and cutting back to one soda daily. She can get the OTC compression socks to wear to help as well., Leg and Ankle Edema: Care Instructions material was published Next Appt Details 1 week Reason:establish care Provider Name:JED BOATENG, 2023-03 12:40:00 AM, [address] [facility], [id number], [place], [address], Provider Name:LALO VIERA, 05-04 02:40:00 PM, [address] [facility], [id number], [place], [phone], [facility] Insurance Providers Payer Name Payer Address Payer Phone Insured Name Patient Relati onship to Insured Coverage Start Date Coverage End Date Subscriber Number Group Nu mber [place] [id number] [address] [facility] [id number] [phone] Zeinab Young Self - patient is the insured 001 [id number] [employer] [address] [facility] [address] [employer] [facility] [phone] Zeinab Young Self - patient is the insured 001 [id number] MEDICATIONS ADMINISTERED Medication Instructions Date of Administration Dosage medroxyPROGESTERone Acetate Nov, 150 mg medroxyPROGESTERone Acetate Oct, 150 mg medroxyPROGESTERone Acetate Mar, 150 mg Depo-Provera Nov, 1 mL Depo-Provera Aug, 1 mL medroxyPROGESTERone Acetate Mar, 150 mg medroxyPROGESTERone Acetate Jun, 150 mg
[2023-05-05 19:14] VITALS: BP 145/88
[2023-05-05] MEDS ORDERED: ONDANSETRON 4 MG/2 ML (SDV) Z0FRAN IV PRN (19:30)
[2023-05-05] MEDS ORDERED: ANTACID SUSP 30 ML UDC (MYLANTA) PO PRN (19:30)
[2023-05-05] MEDS ORDERED: ONDANSETRON 4 MG (ZOFRAN) ORAL DISSOLVE TAB PO PRN (19:30)
[2023-05-05] MEDS ORDERED: ACETAMINOPHEN 325 MG TABLET PO PRN (19:30)
[2023-05-05] MEDS ORDERED: VANCOMYCIN 1 GM/NS 250 ML IVPB IV ONE ×2 (19:45)
[2023-05-05] MEDS: OXcarbazepine (TRILEPTAL) 300 MG TAB PO SCH (20:26)
[2023-05-05 20:40] LABS: BACTERIA,URINE MODERATE /HPF; BILIRUBIN,URINE NEGATIVE (NEGATIVE); CLARITY,URINE CLEAR; COLOR,URINE YELLOW; GLUCOSE, URINE (UA) NEGATIVE (NEGATIVE); HYALINE CASTS, URINE 0-2 /LPF; KETONES,URINE 2+ (NEGATIVE); NITRITE,URINE NEGATIVE (NEGATIVE); PROTEIN,URINE 1+ (NEGATIVE)
[2023-05-05] MEDS: MELATONIN 3 MG TABLET PO PRN (20:43)
[2023-05-05] MEDS ORDERED: ENOXAPARIN 60 MG/0.6 ML SYRINGE SC SCH (21:00)
[2023-05-05] MEDS: ACETAMINOPHEN 500 MG TABLET PO SCH (21:49)
[2023-05-05 23:46] VITALS: BP 140/74
[2023-05-05] MEDS: PIPERACILLIN SODIUM/TAZOBACTAM 4.5 GM in NS (IVPB) 100 ML 100 ML IV SCH (23:47)
[2023-05-05] MEDS: IBUPROFEN 200 MG TABLET PO SCH (23:48)
[2023-05-06 03:18] VITALS: BP 147/79
[2023-05-06] MEDS: ACETAMINOPHEN 500 MG TABLET PO SCH ×3 (05:19→21:13)
[2023-05-06] MEDS: IBUPROFEN 200 MG TABLET PO SCH ×3 (05:19→18:23)
[2023-05-06 05:58] LABS: HEMATOCRIT 35 % (35-52); HEMOGLOBIN 11.6 g/dL (11.5-16.0); MEAN CORPUSCULAR HEMOGLOBIN 28 pg (25-34); MEAN CORPUSCULAR HGB CONC 33 g/dL (32-36); MEAN CORPUSCULAR VOLUME 85 fL (80-99); MEAN PLATELET VOLUME 10.1 fL (9.0-12.2); PLATELET COUNT 172 10^3/uL (130-400); WHITE BLOOD COUNT 6.6 10^3/uL (4.3-11.0)
[2023-05-06 06:17] LABS: BILIRUBIN,TOTAL 0.4 MG/DL (0.1-1.0); CALCIUM 8.7 MG/DL (8.5-10.1); CREATININE SERUM 0.77 MG/DL (0.60-1.30); POTASSIUM 3.6 MMOL/L (3.6-5.0); TOTAL PROTEIN 5.9 GM/DL (6.4-8.2)
--- NOTE | 2023-05-06 08:04 | Progress Note ---
BOB BHAT MD 05/06/23 0804: Subjective HPI/CC On Admission Date Seen by Provider: May 06, 2023 Time Seen by Provider: 09:35 CC: Left lower extremity swelling Subjective/Events-last exam Patient is doing well today, would like to go home. She notes that the pain in her left lower extremity has greatly improved and is able to move that extremity without significant pain. She does note that it still hurts with walking. She also notes the redness has been going down. Has been able to tolerate a diet and has been having good output otherwise Review of Systems General: Appetite HEENT: No Head Aches Pulmonary: No Dyspnea, No Cough Cardiovascular: No: Chest Pain, Palpitations, Edema Gastrointestinal: No: Nausea, Vomiting, Diarrhea, Constipation Genitourinary: No Dysuria Musculoskeletal: leg pain (Improving) Focused Exam Lactate Level 05/05/23 16:15: Lactic Acid Level 2.20*H 05/05/23 19:51: Lactic Acid Level 1.47 Objective Exam Vital Signs Vital Signs Date Time Temp Pulse Resp B/P (MAP) Pulse Ox O2 Delivery O2 Flow Rate FiO2 05/06/23 11:36 36.7 100 18 135/79 (97) 98 Room Air Capillary Refill : Less Than 3 Seconds General Appearance: No Apparent Distress HEENT: Moist Mucous Membranes Neck: Full Range of Motion Respiratory: Chest Non Tender, Lungs Clear, Normal Breath Sounds, No Accessory Muscle Use, No Respiratory Distress Cardiovascular: Regular Rate, Rhythm, No Edema, No Murmur Gastrointestinal: Normal Bowel Sounds, Non Tender, Soft Extremity: Other (Left lower extremity erythema improving, still feels warm to touch, patient has increased range of motion and no tenderness with palpation, swelling also appears to be improving) Neurologic/Psychiatric: Alert, Oriented x3 Skin: Warm/Dry Results/Procedures Lab Laboratory Tests 05/05/23 16:15 05/06/23 05:47 Patient resulted labs reviewed. Imaging: Reviewed Imaging Films, Reviewed Imaging Report Assessment/Plan Assessment and Plan Assess & Plan/Chief Complaint 28-year-old female presenting with sepsis secondary to left lower extremity cellulitis. Will require treatment with IV antibiotics prior to transition to oral and stabilization of tachycardia and vital signs. Diagnosis/Problems Diagnosis/Problems (1) Sepsis Status: Resolved Assessment & Plan: No further episodes of fever since admission and tachycardia has now resolved. Lactic acidosis resolved Patient is noted to have bacteria in her urine but no leukocyte esterase or nitrites. But is otherwise asymptomatic thus unlikely to be contributing to her sepsis picture Continue vancomycin and Zosyn Tylenol as needed for fevers Qualifiers: Qualified Codes: A41.9 - Sepsis, unspecified organism Resolution Date/Time: 05/06/23 @ 08:04 (2) Left leg cellulitis Status: Acute Assessment & Plan: Management per problem above Improving: Erythema continues to reduce and no spreading noticed outside of outline (3) Elevated d-dimer Assessment & Plan: Noted to have elevated D-dimer as well as unilateral leg swelling Most likely to be due to cellulitis, Wells score of -1 However given elevated D-dimer, will obtain a left lower extremity Doppler ultrasound tomorrow Continue therapeutic dose of Lovenox (4) Nausea Status: Resolved Assessment & Plan: Status post dose of Zofran No episodes of vomiting noted by patient today We will keep Zofran on board and allow general diet Resolution Date/Time: 05/06/23 @ 10:51 (5) ADHD Status: Chronic Assessment & Plan: Patient on Intuniv at home, not on formulary here Will restart once pharmacy has completed med rec (6) Acid reflux Status: Chronic Assessment & Plan: Continue Tums and antacids (7) Mood disorder Status: Chronic Assessment & Plan: Continue home oxycarbazapine 450mg BID HOLLI MCKEE DO 05/06/23 1628: Assessment/Plan Assessment and Plan Assess & Plan/Chief Complaint I performed a history and physical examination of the patient and discussed the management with the resident. I reviewed the residents note and agree with the documented findings and plan of care. BOB BHAT MD May 06, 2023 08:04 HOLLI MCKEE DO May 06, 2023 16:28
[2023-05-06 08:24] VITALS: BP 138/86
[2023-05-06] MEDS: OXcarbazepine (TRILEPTAL) 300 MG TAB PO SCH ×2 (09:35→21:12)
[2023-05-06] MEDS: PIPERACILLIN SODIUM/TAZOBACTAM 4.5 GM in NS (IVPB) 100 ML 100 ML IV SCH ×2 (09:35→15:18)
[2023-05-06] MEDS: CALCIUM CARBONATE 500 MG CHEW TABLET PO PRN ×2 (09:37→21:12)
[2023-05-06 11:36] VITALS: BP 135/79
[2023-05-06 15:46] VITALS: BP 114/79
[2023-05-06] MEDS ORDERED: PHARMACY TO DOSE IV SCH (16:30)
--- NOTE | 2023-05-06 18:01 | Diagnostic Imaging Report ---
EXAMINATION: US lower extremity venous duplex left. TECHNIQUE: Multiple real-time grayscale images were obtained over the left lower extremity in various projections. Additional spectral analysis and color Doppler duplex images were also obtained. HISTORY: Swelling. COMPARISON: None available. FINDINGS: Left: The common femoral, superficial femoral, popliteal, peroneal, posterior tibial and greater saphenous veins demonstrate normal flow, augmentation, compressibility. IMPRESSION: No DVT of the left lower extremity. Dictated by: Dictated on workstation # [id number]
[2023-05-06] MEDS ORDERED: VANCOMYCIN 1500MG/300ML PREMIX 300 ML IV SCH (19:00)
[2023-05-06 19:23] VITALS: BP 135/80
[2023-05-06] MEDS ORDERED: ENOXAPARIN 60 MG/0.6 ML SYRINGE SC SCH (21:00)
[2023-05-06] MEDS: ENOXAPARIN 120 MG/0.8 ML SYRINGE SQ SCH (21:13)
[2023-05-06 23:06] VITALS: BP 126/85
[2023-05-07] MEDS: IBUPROFEN 200 MG TABLET PO SCH ×4 (00:09→17:13)
[2023-05-07] MEDS: PIPERACILLIN SODIUM/TAZOBACTAM 4.5 GM in NS (IVPB) 100 ML 100 ML IV SCH ×3 (00:09→17:13)
[2023-05-07 03:25] VITALS: BP 136/85
[2023-05-07 05:54] LABS: ALBUMIN 3.2 GM/DL (3.2-4.5); POTASSIUM 3.6 MMOL/L (3.6-5.0)
[2023-05-07 05:57] LABS: TOTAL PROTEIN 6.8 GM/DL (6.4-8.2)
[2023-05-07 05:58] LABS: BILIRUBIN,TOTAL 0.5 MG/DL (0.1-1.0)
[2023-05-07 06:01] LABS: CREATININE SERUM 0.75 MG/DL (0.60-1.30)
[2023-05-07 06:12] LABS: HEMATOCRIT 35 % (35-52); HEMOGLOBIN 11.6 g/dL (11.5-16.0); MEAN CORPUSCULAR HEMOGLOBIN 28 pg (25-34); MEAN CORPUSCULAR HGB CONC 33 g/dL (32-36); MEAN CORPUSCULAR VOLUME 85 fL (80-99); MEAN PLATELET VOLUME 9.8 fL (9.0-12.2); PLATELET COUNT 187 10^3/uL (130-400); WHITE BLOOD COUNT 7.8 10^3/uL (4.3-11.0)
[2023-05-07] MEDS: ACETAMINOPHEN 500 MG TABLET PO SCH ×3 (06:15→21:05)
[2023-05-07 07:04] VITALS: BP 126/80
[2023-05-07] MEDS ORDERED: NS (IVPB) 250 ML 250 ML ONE (09:36)
[2023-05-07] MEDS: VANCOMYCIN 1500MG/300ML PREMIX 300 ML IV SCH ×2 (09:38→21:06)
[2023-05-07] MEDS: OXcarbazepine (TRILEPTAL) 300 MG TAB PO SCH ×2 (09:47→21:05)
[2023-05-07] MEDS: ENOXAPARIN 120 MG/0.8 ML SYRINGE SQ SCH (09:47)
[2023-05-07 11:29] VITALS: BP 159/87
--- NOTE | 2023-05-07 12:47 | Progress Note - Hospitalist ---
MONTE 05/07/23 1247: Subjective HPI/CC On Admission Date Seen by Provider: May 07, 2023 Time Seen by Provider: 11:30 CC: Left lower extremity swelling Subjective/Events-last exam 28 y/o female has had cellulitis on left lower extremity and foot. Swelling has gone down, but area is still swollen and tender to touch but she feels much better compared to when she came in. She easily engages in conversation and repeatedly states she wants to go home. Review of Systems General: Fatigue, Appetite HEENT: No Head Aches Cardiovascular: No: Chest Pain Gastrointestinal: No: Abdominal Pain, Diarrhea, Constipation Musculoskeletal: foot pain; No: neck pain, shoulder pain Focused Exam Lactate Level 05/05/23 16:15: Lactic Acid Level 2.20*H 05/05/23 19:51: Lactic Acid Level 1.47 Objective Exam Vital Signs Vital Signs Date Time Temp Pulse Resp B/P (MAP) Pulse Ox O2 Delivery O2 Flow Rate FiO2 05/07/23 11:29 36.8 108 18 159/87 (111) 95 Room Air Capillary Refill : Less Than 3 Seconds General Appearance: No Apparent Distress HEENT: Moist Mucous Membranes Neck: Full Range of Motion, Normal Inspection Cardiovascular: Regular Rate, Rhythm Gastrointestinal: Normal Bowel Sounds Extremity: Calf Tenderness, Inflammation, Swelling Neurologic/Psychiatric: Alert, Oriented x3 Skin: Warm/Dry Results/Procedures Lab Laboratory Tests 05/07/23 05:27 05/07/23 06:02 Patient resulted labs reviewed. Imaging: Reviewed Imaging Films, Reviewed Imaging Report Assessment/Plan Assessment and Plan Assess & Plan/Chief Complaint Assessment: complicated cellulitis treated sepsis Plan: continue treating with IV antiobiotics and pain medications JANETTE MCKEE DO 05/08/23 0551: Supervisory-Addendum Brief Verification & Attestation Participated in pt care: history, MDM, physical Personally performed: exam, history, MDM, supervision of care Care discussed with: Medical Student Procedures: n/a Results interpretation: Verified all documentation Verification and Attestation of Medical Student E/M Service A medical student performed and documented this service in my presence. I reviewed and verified all information documented by the medical student and made modifications to such information, when appropriate. I personally performed the physical exam and medical decision making. Janette Mckee, May 08, 2023,05:50 MONTE May 07, 2023 12:47 JANETTE MCKEE DO May 08, 2023 05:51
--- NOTE | 2023-05-07 15:15 | Physical Therapy Evaluation ---
PT Evaluation-General Medical Diagnosis Admission Date May 05, 2023 at 19:02 Medical Diagnosis: Left LE cellulitis, sepsis Onset Date: May 05, 2023 Therapy Diagnosis Therapy Diagnosis: Gait deficit, strength deficit Height/Weight Height (Feet): 4 Height (Inches): 11.00 Weight (Pounds): 220 Precautions Precautions/Isolations: Fall Prevention, Standard Precautions Weight Bear Status Right Lower Extremity: Right Full Weight Bearing Left Lower Extremity: Left Full Weight Bearing Referral Physician: Dr. Clemons Reason for Referral: Evaluation/Treatment Social History Home: Single Level Current Living Status: Other Family Entry Into Home: Stairs Without Railing PT Steps Into Home: 1 Prior Prior Level of Function SCALE: Activities may be completed with or without assistive devices. 0-Hulbebfcht-ctflccm completes the activity by him/herself with no assistance from a helper. 5-Set-up or Clean-up Assistance-helper sets up or cleans up; patient completes activity. [place] assists only prior to or following the activity. 4-Supervision or Touching Assistance-helper provides verbal cues and/or touching/steadying and/or contact guard assistance as patient completes a ctivity. Assistance may be provided throughout the activity or intermittently. 3-Partial/Moderate Assistance-helper does LESS THAN HALF the effort. Herndon lifts, holds or supports trunk or limbs, but provides less than half the effort. 2-Substantial/Maximal Assistance-helper does MORE THAN HALF the effort. [place] lifts or holds trunk or limbs and provides more than half the effort. 3-Piegewhcl-qyxnou does ALL the effort. Patient does none of the effort to complete the activity. Or, the assistance of 2 or more helpers is required for the patient to complete the activity. If activity was not attempted, code reason: 7-Patient Refused. 9-Not Applicable-not attempted and the patient did not perform the activity before the current illness, exacerbation or injury. 10-Not Attempted due to Environmental Limitations-(lack of equipment, weather restraints, etc.). 88-Not Attempted due to Medical Conditions or Safety Concerns. Bed Mobility: 6 Transfers (B,C,W/C): 6 Gait: 6 Stairs: 6 Indoor Mobility (Ambulation): Independent Stairs: Independent Prior Devices Use: None PT Evaluation-Current Objective Patient Orientation: Person, Place, Time, Situation Attachments: IV ROM/Strength ROM Lower Extremities WFLs BLEs all planes except left ankle ROM. Strength Lower Extremities 4/5 BLEs all planes except left ankle, 3/5. Sensory Vision: Functional Hearing: Functional Sensation Right Lower Extremit: Intact Sensation Left Lower Extremity: Intact Transfers Roll Left to Right (QC): 4 Sit to Lying (QC): 4 Lying to Sitting/Side of Bed(Q: 4 Sit to Stand (QC): 4 Chair/Zof-od-Ojqqz Xfer(QC): 4 Gait Does the Patient Walk?: Yes Mode of Locomotion: Walk Anticipated Mode of Locomotion: Walk Walk 10 feet (QC): 4 Walk 50 ft with 2 Turns(QC): 4 Distance: 120' Gait Assistive Device: FWW Balance Sitting Static: Good Sitting Dynamic: Good Standing Static: Fair Standing Dynamic: Fair Assessment/Needs Patient tolerated treatment fair. Demonstrates mild loss of safety awareness and is impulsive at times due to cognitive baseline. Patient performs all observed bed mobility and transfers with SBA. Patient ambulates 120 feet with FWW, with CGA and verbal cues for safety, posture and control of FWW. Patient in bed post treatment with all needs met, nursing notified, call light in hand. Rehab Potential: Good Equipment Needs FWW PT Alf Goals Stick Puller Goals PT Stick Puller Goals Time Frame: May 31, 2023 Roll Left & Right (QC): 6 Sit to Lying (QC): 6 Lying-Sitting on Side/Bed(QC): 6 Sit to Stand (QC): 6 Chair/Lib-yr-Qdcop Xfer(QC): 6 Toilet Transfer (QC): 6 Does the Patient Walk: Yes Walk 10 feet (QC): 6 Walk 50ft with 2 Turns (QC): 6 Walk 150 ft (QC): 6 1 Step (curb) (QC): 4 PT Plan Problem List Problem List: Activity Tolerance, Functional Strength, Safety, Balance, Gait, Transfer, Bed Mobility, ROM Treatment/Plan Treatment Plan: Continue Plan of Care Treatment Plan: Bed Mobility, Education, Functional Activity Christina, Functional Strength, Group Therapy, Gait, Safety, Therapeutic Exercise, Transfers Treatment Duration: Jun 02, 2023 Frequency: 6 times per week Estimated Hrs Per Day: .25 hour per day Patient and/or Family Agrees t: Yes Safety Risks/Education Patient Education: Gait Training, Transfer Techniques Teaching Recipient: Patient Teaching Methods: Demonstration, Discussion Response to Teaching: Verbalize Understanding, Return Demonstration Time Time In: 1423 Time Out: 1441 DATE: May 07, 2023 Total Billed Treatment Time: 18 Total Billed Treatment Visit, MIHAI TOSCANO PT May 07, 2023 15:15
[2023-05-07 15:24] VITALS: BP 131/75
[2023-05-07 19:07] VITALS: BP 147/92
[2023-05-07 23:30] VITALS: BP 132/86
[2023-05-08] MEDS: IBUPROFEN 200 MG TABLET PO SCH ×4 (00:17→17:12)
[2023-05-08] MEDS: PIPERACILLIN SODIUM/TAZOBACTAM 4.5 GM in NS (IVPB) 100 ML 100 ML IV SCH ×3 (00:17→16:03)
[2023-05-08] MEDS: MELATONIN 3 MG TABLET PO PRN ×2 (00:19→22:13)
[2023-05-08 03:43] VITALS: BP 133/84
[2023-05-08] MEDS: ACETAMINOPHEN 500 MG TABLET PO SCH ×3 (05:42→22:14)
[2023-05-08 06:05] LABS: HEMATOCRIT 35 % (35-52); HEMOGLOBIN 11.4 g/dL (11.5-16.0); MEAN CORPUSCULAR HEMOGLOBIN 28 pg (25-34); MEAN CORPUSCULAR HGB CONC 33 g/dL (32-36); MEAN CORPUSCULAR VOLUME 84 fL (80-99); MEAN PLATELET VOLUME 9.9 fL (9.0-12.2); PLATELET COUNT 184 10^3/uL (130-400); WHITE BLOOD COUNT 7.7 10^3/uL (4.3-11.0)
[2023-05-08 06:25] LABS: ALBUMIN 2.9 GM/DL (3.2-4.5); POTASSIUM 3.3 MMOL/L (3.6-5.0)
[2023-05-08 06:26] LABS: CALCIUM 8.8 MG/DL (8.5-10.1)
[2023-05-08 06:27] LABS: TOTAL PROTEIN 6.3 GM/DL (6.4-8.2)
[2023-05-08 06:29] LABS: BILIRUBIN,TOTAL 0.3 MG/DL (0.1-1.0)
[2023-05-08 06:31] LABS: CREATININE SERUM 0.62 MG/DL (0.60-1.30)
[2023-05-08 07:59] VITALS: BP 134/97
[2023-05-08] MEDS ORDERED: TROUGH ORDER-PHARMACY XX ONE (08:00)
[2023-05-08] MEDS: OXcarbazepine (TRILEPTAL) 300 MG TAB PO SCH ×2 (08:41→20:29)
[2023-05-08] MEDS: VANCOMYCIN 2000 MG/NS 500 ML IVPB IV SCH ×4 (08:48→20:27)
[2023-05-08] MEDS ORDERED: ENOXAPARIN 40 MG/0.4 ML SYRINGE SC SCH (09:00)
--- NOTE | 2023-05-08 10:27 | Progress Note - Hospitalist ---
DANICADESI 05/08/23 1027: Subjective HPI/CC On Admission Date Seen by Provider: May 08, 2023 Time Seen by Provider: 10:00 CC: Left lower extremity swelling Subjective/Events-last exam 28 y/o female with complicated lower left extremity cellulitis still has inflammation. The area is warm, red and turpentine distiller to touch and mild pressure. Yesterday she could move her toes and today she can move her ankles. She can walk short distance without significant pain and in general while laying down she does not feel much pain in her leg. The redness and inflammation still affects the same area and has not spread or worsened. She easily engages in conversation and says she feels better every day and wants to go home as quick as she can. She is being kept on IV vancomycin and zosyn. Review of Systems General: No Chills, No Night Sweats Cardiovascular: No: Chest Pain Gastrointestinal: No: Nausea, Vomiting, Abdominal Pain Musculoskeletal: leg pain, foot pain Focused Exam Lactate Level 05/05/23 16:15: Lactic Acid Level 2.20*H 05/05/23 19:51: Lactic Acid Level 1.47 Objective Exam Vital Signs Vital Signs Date Time Temp Pulse Resp B/P (MAP) Pulse Ox O2 Delivery O2 Flow Rate FiO2 05/08/23 08:00 95 Room Air 05/08/23 07:59 36.5 96 20 134/97 (109) Capillary Refill : Less Than 3 Seconds General Appearance: No Apparent Distress Respiratory: Lungs Clear Cardiovascular: Regular Rate, Rhythm Extremity: Normal Capillary Refill, Inflammation, Swelling Results/Procedures Lab Laboratory Tests 05/08/23 05:55 Patient resulted labs reviewed. Imaging: Reviewed Imaging Films, Reviewed Imaging Report Assessment/Plan Assessment and Plan Assess & Plan/Chief Complaint Assessment: complicated cellulitis treated sepsis Plan: continue treating with IV antibiotics and pain medications elevate affected leg encourage walking JANETTE MCKEE DO 05/09/23 0517: Supervisory-Addendum Brief Verification & Attestation Participated in pt care: history, MDM, physical Personally performed: exam, history, MDM, supervision of care Care discussed with: Medical Student Procedures: n/a Results interpretation: Verified all documentation Verification and Attestation of Medical Student E/M Service A medical student performed and documented this service in my presence. I reviewed and verified all information documented by the medical student and made modifications to such information, when appropriate. I personally performed the physical exam and medical decision making. Janette Mckee, May 09, 2023,05:17 MONTE May 08, 2023 10:27 JANETTE MCKEE DO May 09, 2023 05:17
[2023-05-08 11:40] VITALS: BP 141/85
[2023-05-08 15:26] VITALS: BP 136/89
[2023-05-08 19:38] VITALS: BP 136/80
[2023-05-08 23:52] VITALS: BP 144/98
[2023-05-09] MEDS: PIPERACILLIN SODIUM/TAZOBACTAM 4.5 GM in NS (IVPB) 100 ML 100 ML IV SCH ×4 (00:04→23:52)
[2023-05-09] MEDS: IBUPROFEN 200 MG TABLET PO SCH ×5 (00:04→23:52)
[2023-05-09 03:39] VITALS: BP 149/98
[2023-05-09] MEDS: ACETAMINOPHEN 500 MG TABLET PO SCH ×3 (06:05→21:10)
[2023-05-09 06:20] LABS: HEMATOCRIT 28 % (35-52); HEMOGLOBIN 9.4 g/dL (11.5-16.0); MEAN CORPUSCULAR HEMOGLOBIN 28 pg (25-34); MEAN CORPUSCULAR HGB CONC 33 g/dL (32-36); MEAN CORPUSCULAR VOLUME 85 fL (80-99); MEAN PLATELET VOLUME 9.7 fL (9.0-12.2); PLATELET COUNT 227 10^3/uL (130-400); WHITE BLOOD COUNT 6.1 10^3/uL (4.3-11.0)
[2023-05-09 06:40] LABS: ALBUMIN 2.3 GM/DL (3.2-4.5); BILIRUBIN,TOTAL 0.2 MG/DL (0.1-1.0); CALCIUM 7.7 MG/DL (8.5-10.1); CREATININE SERUM 0.52 MG/DL (0.60-1.30); POTASSIUM 2.9 MMOL/L (3.6-5.0); TOTAL PROTEIN 5.1 GM/DL (6.4-8.2)
[2023-05-09 07:39] VITALS: BP 139/81
[2023-05-09] MEDS: OXcarbazepine (TRILEPTAL) 300 MG TAB PO SCH ×2 (08:45→21:10)
[2023-05-09] MEDS ORDERED: ENOXAPARIN 60 MG/0.6 ML SYRINGE SC SCH (09:00)
[2023-05-09] MEDS: VANCOMYCIN 2000 MG/NS 500 ML IVPB IV SCH ×4 (09:19→21:08)
[2023-05-09] MEDS: POTASSIUM CHLORIDE 20 MEQ TABLET PO SCH ×2 (11:31→17:40)
[2023-05-09 11:59] VITALS: BP 143/87
--- NOTE | 2023-05-09 14:44 | Progress Note - Hospitalist ---
MONTE 05/09/23 1444: Subjective HPI/CC On Admission Date Seen by Provider: May 09, 2023 Time Seen by Provider: 09:45 CC: Left lower extremity swelling Subjective/Events-last exam She was in a very good mood when I saw her because of the stuffed animal she had received from the nurse earlier. The swelling and redness on the left lower leg has gone down significantly compared to the originally demarcated lines. She progressed from moving her toes to moving her ankles and today she is able to comfortably walk small distances. The area does not feel tender to mild or moderate pressure and the patient has done a good job at keeping her foot elevated. She again does not report any pain while walking or laying down and she was very happy the inflammation was getting better as she is excited to go home soon. Review of Systems General: No Chills, No Night Sweats, No Fatigue, No Malaise; Appetite HEENT: No Head Aches Cardiovascular: No: Chest Pain, Palpitations Gastrointestinal: No: Nausea, Vomiting, Abdominal Pain Neurological: No: Weakness, Numbness Objective Exam Vital Signs Vital Signs Date Time Temp Pulse Resp B/P (MAP) Pulse Ox O2 Delivery O2 Flow Rate FiO2 05/09/23 11:59 36.4 96 18 143/87 (105) 98 Room Air Capillary Refill : Less Than 3 Seconds General Appearance: No Apparent Distress Neck: Non Tender, Supple Respiratory: Chest Non Tender, Lungs Clear, Normal Breath Sounds, No Accessory Muscle Use, No Respiratory Distress Cardiovascular: Regular Rate, Rhythm Gastrointestinal: Normal Bowel Sounds, Non Tender, Soft Extremity: Inflammation, Swelling Neurologic/Psychiatric: Alert, Oriented x3, No Motor/Sensory Deficits, Normal Mood/Affect Skin: Warm/Dry Results/Procedures Lab Laboratory Tests 05/09/23 06:10 Patient resulted labs reviewed. Imaging: Reviewed Imaging Films, Reviewed Imaging Report Assessment/Plan Assessment and Plan Assess & Plan/Chief Complaint Assessment: complicated cellulitis treated sepsis Plan: continue treating with IV antibiotics and pain medications elevate affected leg encourage walking JANETTE MCKEE DO 05/09/23 2017: Supervisory-Addendum Brief Verification & Attestation Participated in pt care: history, MDM, physical Personally performed: exam, history, MDM, supervision of care Care discussed with: Medical Student Procedures: n/a Results interpretation: Verified all documentation Verification and Attestation of Medical Student E/M Service A medical student performed and documented this service in my presence. I reviewed and verified all information documented by the medical student and made modifications to such information, when appropriate. I personally performed the physical exam and medical decision making. Janette Mckee, May 09, 2023,20:16 MONTE May 09, 2023 14:44 JANETTE MKCEE DO May 09, 2023 20:17
[2023-05-09 16:44] VITALS: BP 175/98
[2023-05-09 19:45] VITALS: BP 165/58
[2023-05-09] MEDS ORDERED: TROUGH ORDER-PHARMACY XX NR (20:00)
[2023-05-09] MEDS: MELATONIN 3 MG TABLET PO PRN (21:12)
[2023-05-09] MEDS: ENOXAPARIN 60 MG/0.6 ML SYRINGE SC SCH (21:13)
[2023-05-09 23:41] VITALS: BP 145/95
[2023-05-10 03:06] VITALS: BP 138/98
[2023-05-10] MEDS: IBUPROFEN 200 MG TABLET PO SCH ×2 (05:21→11:13)
[2023-05-10] MEDS: ACETAMINOPHEN 500 MG TABLET PO SCH (05:21)
[2023-05-10 05:38] LABS: HEMATOCRIT 33 % (35-52); HEMOGLOBIN 10.9 g/dL (11.5-16.0); MEAN CORPUSCULAR HEMOGLOBIN 28 pg (25-34); MEAN CORPUSCULAR HGB CONC 33 g/dL (32-36); MEAN CORPUSCULAR VOLUME 85 fL (80-99); MEAN PLATELET VOLUME 9.5 fL (9.0-12.2); PLATELET COUNT 318 10^3/uL (130-400); WHITE BLOOD COUNT 6.9 10^3/uL (4.3-11.0)
[2023-05-10 06:01] LABS: ALBUMIN 2.9 GM/DL (3.2-4.5); BILIRUBIN,TOTAL 0.2 MG/DL (0.1-1.0); CALCIUM 9.1 MG/DL (8.5-10.1); CREATININE SERUM 0.65 MG/DL (0.60-1.30); POTASSIUM 3.3 MMOL/L (3.6-5.0); TOTAL PROTEIN 6.3 GM/DL (6.4-8.2)
[2023-05-10 07:52] VITALS: BP 137/89
[2023-05-10] MEDS: VANCOMYCIN 2000 MG/NS 500 ML IVPB IV SCH ×2 (08:55)
[2023-05-10] MEDS: OXcarbazepine (TRILEPTAL) 300 MG TAB PO SCH (08:55)
[2023-05-10] MEDS: POTASSIUM CHLORIDE 20 MEQ TABLET PO SCH (08:55)
[2023-05-10] MEDS: ENOXAPARIN 60 MG/0.6 ML SYRINGE SC SCH (08:56)
[2023-05-10] MEDS: PIPERACILLIN SODIUM/TAZOBACTAM 4.5 GM in NS (IVPB) 100 ML 100 ML IV SCH (08:56)
[2023-05-10 11:34] VITALS: BP 170/91
[2023-05-10] MEDS ORDERED: SULF1TAB38 PO (12:04)
--- NOTE | 2023-05-10 12:05 | Progress Note ---
MONTE 05/10/23 1205: Progress Note Hospital course: 28 y/o female with a history of intellectual disability and mood disorders presented to the emergency department with lower left extremity swelling, redness and inflammation in addition to tachycardia. She reported some vomiting a few days before she arrived but no additional vomiting occurred during her stay. She was admitted to the inpatient med surg floor with the diagnosis of complicated cellulitis and resolved sepsis on her LLE, she was also given IV vancomycin and zosyn during her stay. Her labs showed elevated D- dimer, but US showed no DVT and elevation was suggested to be due to the cellulitis. The pain she felt had progressively decreased during her 5 day stay and by day 3 she was walking with minimal pain. On her final days of stay she reported no pain and the inflammation and swelling had significantly decreased from the originally demarcated lines. JANETTE MCKEE DO 05/10/236: Supervisory-Addendum Brief Verification & Attestation Participated in pt care: history, MDM, physical Personally performed: exam, history, MDM, supervision of care Care discussed with: Medical Student Procedures: n/a Results interpretation: Verified all documentation Verification and Attestation of Medical Student E/M Service A medical student performed and documented this service in my presence. I reviewed and verified all information documented by the medical student and made modifications to such information, when appropriate. I personally performed the physical exam and medical decision making. Janette Mckee, May 10, 2023,22:06 MONTE May 10, 2023 12:05 JANETTE MKCEE DO May 10, 2023 22:06
--- NOTE | 2023-05-10 12:05 | Discharge Summary ---
Discharge Summary Hospital Course Problems/Dx: (1) Sepsis Status: Resolved Qualifiers: Qualified Codes: A41.9 - Sepsis, unspecified organism (2) Left leg cellulitis Status: Acute (3) Elevated d-dimer (4) Nausea Status: Resolved (5) ADHD Status: Chronic (6) Acid reflux Status: Chronic (7) Mood disorder Status: Chronic Hospital Course Date of Admission: May 05, 2023 at 19:02 Admission Diagnosis : [facility] [place] Date of Discharge: 05/10/23 Discharge Diagnosis: [ ] Hospital Course: Hospital course: 28 y/o female with a history of intellectual disability and mood disorders presented to the emergency department with lower left extremity swelling, redness and inflammation in addition to tachycardia. She reported some vomiting a few days before she arrived but no additional vomiting occurred during her stay. She was admitted to the inpatient med surg floor with the diagnosis of complicated cellulitis and resolved sepsis on her LLE, she was also given IV vancomycin and zosyn during her stay. Her labs showed elevated D- dimer, but US showed no DVT and elevation was suggested to be due to the cellulitis. The pain she felt had progressively decreased during her 5 day stay and by day 3 she was walking with minimal pain. On her final days of stay she reported no pain and the inflammation and swelling had significantly decreased from the originally demarcated lines. Labs and Pending Lab Test: Laboratory Tests 05/09/23 20:18: Vancomycin Level Trough 8.6L 05/10/23 05:29: White Blood Count 6.9, Red Blood Count 3.92, Hemoglobin 10.9L, Hematocrit 33L, Mean Corpuscular Volume 85, Mean Corpuscular Hemoglobin 28, Mean Corpuscular Hemoglobin Concent 33, Red Cell Distribution Width 14.3, Platelet Count 318, Mean Platelet Volume 9.5, Sodium Level 143, Potassium Level 3.3L, Chloride Level 111H, Carbon Dioxide Level 21, Anion Gap 11, Blood Urea Nitrogen 4L, Creatinine 0.65, Estimat Glomerular Filtration Rate 122, BUN/Creatinine Ratio 6, Glucose Level 69L, Calcium Level 9.1, Corrected Calcium 10.0, Total Bilirubin 0.2, Aspartate Amino Transf (AST/SGOT) 19, Alanine Aminotransferase (ALT/SGPT) 20, Alkaline Phosphatase 105, Total Protein 6.3L, Albumin 2.9L Microbiology 05/05/23 Urine Culture - Final, Complete Growth Consistent 05/05/23 Blood Culture - Preliminary, Resulted No growth Home Meds Active No Active Prescriptions or Reported Medications Assessment/Pt Instructions pcp 1 week Discharge Planning: <30 minutes discharge planning Discharge Instructions Discharge Diet: No Restrictions Discharge Physical Examination Vital Signs Vital Signs Date Time Temp Pulse Resp B/P (MAP) Pulse Ox O2 Delivery O2 Flow Rate FiO2 05/10/23 11:34 36.6 90 22 170/91 (117) 98 Room Air General Appearance: No Apparent Distress, WD/WN Skin: Rash (residual pinkness left lower leg) Allergies: Coded Allergies: No Known Drug Allergies (Unverified , 08/03/14) Discharge Summary Date of Admission May 05, 2023 at 19:02 Date of Discharge Discharge Date: May 10, 2023 Admission Diagnosis I performed a history and physical examination of the patient and discussed the management with the resident. I reviewed the residents note and agree with the documented findings and plan of care. Discharge Diagnosis I performed a history and physical examination of the patient and discussed the management with the resident. I reviewed the residents note and agree with the documented findings and plan of care. (1) Sepsis Status: Resolved Assessment & Plan: No further episodes of fever since admission and tachycardia has now resolved. Lactic acidosis resolved Patient is noted to have bacteria in her urine but no leukocyte esterase or nitrites. But is otherwise asymptomatic thus unlikely to be contributing to her sepsis picture Continue vancomycin and Zosyn Tylenol as needed for fevers Qualifiers: Qualified Codes: A41.9 - Sepsis, unspecified organism (2) Left leg cellulitis Status: Acute Assessment & Plan: Management per problem above Improving: Erythema continues to reduce and no spreading noticed outside of outline (3) Elevated d-dimer Assessment & Plan: Noted to have elevated D-dimer as well as unilateral leg swelling Most likely to be due to cellulitis, Wells score of -1 However given elevated D-dimer, will obtain a left lower extremity Doppler ultrasound tomorrow Continue therapeutic dose of Lovenox (4) Nausea Status: Resolved Assessment & Plan: Status post dose of Zofran No episodes of vomiting noted by patient today We will keep Zofran on board and allow general diet (5) ADHD Status: Chronic Assessment & Plan: Patient on Intuniv at home, not on formulary here Will restart once pharmacy has completed med rec (6) Acid reflux Status: Chronic Assessment & Plan: Continue Tums and antacids (7) Mood disorder Status: Chronic Assessment & Plan: Continue home oxycarbazapine 450mg BID HOLLI MCKEE DO May 10, 2023 12:05
== END 2023-05-10 15:10 | disposition home or self-care (01) | DRG 872 ==
LOC: EDUNIT# 15:53 → ER 15:56 → 4TH 19:02
PROVIDERS: ADMIT Internal Medicine; ATTEND Internal Medicine
DX: A41.9 Sepsis, unspecified organism (principal); L03.116 Cellulitis of left lower limb; F31.9 Bipolar disorder, unspecified; F90.9 Attention-deficit hyperactivity disorder, unspecified type; R11.0 Nausea; K21.9 Gastro-esophageal reflux disease without esophagitis
CPT/HCPCS: 36410; 36415; 71045; 76937; 80053; 80202; 81000; 83605; 84703; 85025; 85027; 85379; 85610; 85730; 87040; 87088; 93005; 96361; 96365; 96366; 96367; 96368; 96372; 96375